=== PATIENT | male | born 1995 | race American Indian/Alaskan Native ===

== ENCOUNTER 2017-03-22 11:51 | Emergency (ER) | payer OTHER, SELFPAY ==
[2017-03-22] MEDS ORDERED: DUONEB *Not for PRN Use IH ONE (11:59)
[2017-03-22] MEDS ORDERED: PROVENTIL IH ONE ×2 (11:59→12:08)
[2017-03-22] MEDS ORDERED: MAGNESIUM SULFATE 2GM/50ML 2 GM/50 ML BAG IV ONE ×2 (12:07→12:08)
[2017-03-22] MEDS ORDERED: ATROVENT IH ONE (12:08)
--- NOTE | 2017-03-22 12:09 | Emergency Department Report ---
Chief Complaint: Adult Asthma Stated Complaint: DIFFICULTY BREATHING Time Seen by Provider: 03/22/17 12:07 - HPI History of Present Illness: 21-year-old male past medical history asthma presents for complaint of severe shortness of breath sent from urgent care. Patient visibly gasping with audible wheezing. Speaking in broken sentences on initial exam. - ROS Review of Systems: History of asthma - Exam Physical Exam: Active loud wheezing on auscultation MSE screening note: Focused history and physical exam performed. Due to findings the following was ordered: Screening Assessment/Plan/Differential Dx: Acute asthma exacerbation/wheezing/ shortness of breath 1- This initial assessment/diagnostic orders/clinical plan/ treatment(s) is/are subject to change based on pt's health status, clinical progression and re- assessment by fellow clinical providers in the ED. Further treatment and workup at subsequent clinical provers discretion. Patient/guardians urged not to elope from ED as their condition may be serious if not clinically assessed and managed. 2-I informed Dr. Francisco of patient's clinical status and charge nurse Dianne 3-DuoNeb, IV magnesium, patient already received 10 mg of IM Decadron and urgent care before presenting to ED 4-chest x-ray ED Disposition for MSE Condition: Stable
--- NOTE | 2017-03-22 12:24 | XRay Report ---
AP CHEST: HISTORY: Wheezing AP view of the chest demonstrates a normal mediastinal and cardiac contour with clear lungs and normal bony and soft tissue structures. IMPRESSION: Unremarkable AP chest.
[2017-03-22] MEDS ORDERED: NACL 0.9% 1000 ML 1,000 ML IV ONE (13:31)
[2017-03-22] MEDS ORDERED: ZITHROMAX 500 MG in NACL 0.9% 250ML 250 ML IV ONE (14:00)
[2017-03-22 14:04] LABS: Hematocrit 48.3 % (35.5-45.6); Hemoglobin 15.9 gm/dl (11.8-15.2); Mean Corpuscular HGB Conc 33 % (32-34); Mean Corpuscular Hemoglobin 28 pg (28-32); Mean Corpuscular Volume 84 fl (84-94); Platelet Count 309 K/mm3 (140-440); Red Blood Count 5.79 M/mm3 (3.65-5.03); Red Cell Distribution Width 13.8 % (13.2-15.2); White Blood Count 13.5 K/mm3 (4.5-11.0)
[2017-03-22 14:20] LABS: BUN/Creatinine Ratio 11; Blood Urea Nitrogen 12 mg/dL (9-20); Calcium 8.8 mg/dL (8.4-10.2); Carbon Dioxide 25 mmol/L (22-30); Glucose 130 mg/dL (75-100)
[2017-03-22 14:21] LABS: Anion Gap 20 mmol/L; Chloride 102.9 mmol/L (98-107); Potassium 4.6 mmol/L (3.6-5.0); Sodium 143 mmol/L (137-145)
--- NOTE | 2017-03-22 14:26 | Emergency Department Report ---
ED Asthma HPI - General Chief Complaint: Adult Asthma Stated Complaint: DIFFICULTY BREATHING Time Seen by Provider: 03/22/17 12:07 Source: patient Mode of arrival: Ambulatory Limitations: No Limitations - History of Present Illness Initial Comments: 21-year-old male the past as a no previous intubations presents to hospital with shortness breath secondary to asthma exacerbation. Patient has had a cough productive of yellow mucus 3 days. Patient developed worsening asthma and shortness of breath this a.m. He was seen in urgent care prior to arrival and received a nebulized treatment and Decadron IM. She felt better but while walking symptoms acutely worsen today he walks over here to the ED. Patient denies fever. Chest tightness moderate in intensity and worse with exertion. - Related Data Previous Rx's Medication Instructions Recorded Last Taken Type ALBUTEROL Inhaler [ProAir HFA 2 puff IH QID PRN #1 inhalation 03/22/17 Unknown Rx Inhaler] ALBUTEROL NEB's [Proventil 0.083% 2.5 mg IH TID PRN #1 box 03/22/17 Unknown Rx NEBS] Ibuprofen [Motrin 600 MG tab] 600 mg PO Q8H PRN #30 tablet 03/22/17 Unknown Rx predniSONE [Deltasone] 40 mg PO QDAY 5 Days tab 03/22/17 Unknown Rx Allergies Allergy/AdvReac Type Severity Reaction Status Date / Time No Known Allergies Allergy Verified 03/25/14 07:18 ED Review of Systems ROS: Stated complaint: DIFFICULTY BREATHING Other details as noted in HPI Comment: All other systems reviewed and negative Other: Constitutional: No fevers chills Eyes: No eye pain visual changes ENT: No ear pain or throat pain Neck: Denies pain Respiratory: As per HPI Cardiovascular: Denies palpitations, syncope GI: Denies abdominal pain, nausea, vomiting, diarrhea : Denies dysuria Musculoskeletal: Denies back pain, joint swelling Skin: Denies rash, lesions, erythema Neurologic: Denies headache, numbness, weakness Psychiatric: Denies suicidal ideation, hallucinations ED Past Medical Hx - Past Medical History Hx Asthma: Yes - Social History Smoking Status: Unknown if ever smoked - Medications Home Medications: Home Medications Medication Instructions Recorded Confirmed Last Taken Type ALBUTEROL Inhaler [ProAir HFA 2 puff IH QID PRN #1 inhalation 03/22/17 Unknown Rx Inhaler] ALBUTEROL NEB's [Proventil 0.083% 2.5 mg IH TID PRN #1 box 03/22/17 Unknown Rx NEBS] Ibuprofen [Motrin 600 MG tab] 600 mg PO Q8H PRN #30 tablet 03/22/17 Unknown Rx predniSONE [Deltasone] 40 mg PO QDAY 5 Days tab 03/22/17 Unknown Rx ED Physical Exam - General Limitations: No Limitations - Other Other exam information: General: Moderate respiratory distress Head exam: Atraumatic, normocephalic Eyes exam: Normal appearance ENT: Moist mucous membrane, normal oropharynx Neck exam: Normal inspection, full range of motion, no meningismus nontender Respiratory exam: Accessory muscle use, respiratory distress, is respiratory and expiratory wheezing, fair air movement, Cardiovascular: Tachycardia regular rhythm Abdomen: Soft, nondistended, and nontender, with normal bowel sounds, no rebound, or guarding Extremity: Full range of motion normal inspection no deformity, tenderness or edema Back: Normal Inspection, full range of motion, no tenderness Neurologic: Alert, oriented x3, cranial nerves intact, no motor or sensory deficit Psychiatric: normal affect, normal mood Skin: Warm, dry, intact ED Course Vital Signs 03/22/17 03/22/17 03/22/17 12:07 12:16 12:19 Temperature Pulse Rate 120 H Pulse Rate [ 130 H Bilateral Upper Lobe] Respiratory 22 22 Rate Respiratory 30 H Rate [Bilateral Upper Lobe] Blood Pressure 117/80 [Right] O2 Sat by Pulse 99 99 Oximetry 03/22/17 03/22/17 03/22/17 12:35 14:43 15:01 Temperature Pulse Rate Pulse Rate [ 125 H 115 H 118 H Bilateral Upper Lobe] Respiratory Rate Respiratory 24 20 20 Rate [Bilateral Upper Lobe] Blood Pressure [Right] O2 Sat by Pulse Oximetry 03/22/17 15:32 Temperature 98.5 F Pulse Rate 112 H Pulse Rate [ Bilateral Upper Lobe] Respiratory 15 Rate Respiratory Rate [Bilateral Upper Lobe] Blood Pressure 128/71 [Right] O2 Sat by Pulse 98 Oximetry - Reevaluation(s) Reevaluation #1: 03/22/17 14:31 Patient presented to the ED and respiratory distress. Albuterol 10 mg, Atrovent 1 mg initiated. Patient treated with additional Solu-Medrol 125, and magnesium 2 g. Azithromycin IV also ordered. 12/12/17 15:50 pt feels better, wheezing resolved, tolerating ambulation with 98% on room air ED Medical Decision Making - Lab Data Result diagrams: 03/22/17 13:50 03/22/17 13:50 Lab Results 03/22/17 03/22/17 Range/Units 13:50 13:50 WBC 13.5 H (4.5-11.0) K/mm3 RBC 5.79 H (3.65-5.03) M/mm3 Hgb 15.9 H (11.8-15.2) gm/dl Hct 48.3 H (35.5-45.6) % MCV 84 (84-94) fl MCH 28 (28-32) pg MCHC 33 (32-34) % RDW 13.8 (13.2-15.2) % Plt Count 309 (140-440) K/mm3 Seg Neutrophils % [employer] Sodium 143 (137-145) mmol/L Potassium 4.6 (3.6-5.0) mmol/L Chloride 102.9 (98-107) mmol/L Carbon Dioxide 25 (22-30) mmol/L Anion Gap 20 mmol/L BUN 12 (9-20) mg/dL Creatinine 1.1 (0.8-1.5) mg/dL Estimated GFR > 60 ml/min BUN/Creatinine Ratio 11 % Glucose 130 H (75-100) mg/dL Calcium 8.8 (8.4-10.2) mg/dL - Radiology Data Radiology results: report reviewed (cxr: unremarkable. Read by radiologist) - Medical Decision Making pt feeling better and enough to go home. will be prescribed meds for acute asthma exacerbation f/u will be encouraged - Differential Diagnosis pneumonia, bronchitis, asthma Critical Care Time: No Critical care attestation.: If time is entered above; I have spent that time in minutes in the direct care of this critically ill patient, excluding procedure time. ED Disposition Clinical Impression: Acute asthma exacerbation Disposition: DC-01 TO HOME OR SELFCARE Is pt being admited?: No Does the pt Need Aspirin: No Condition: Stable Instructions: Asthma (ED) Additional Instructions: Take the medication as prescribed. Return if symptoms worsen. Follow-up with the primary care doctor or clinic provided Prescriptions: ALBUTEROL Inhaler [ProAir HFA Inhaler] 2 puff IH QID PRN #1 inhalation PRN Reason: Shortness Of Breath ALBUTEROL NEB's [Proventil 0.083% NEBS] 2.5 mg IH TID PRN #1 box PRN Reason: Wheezing Ibuprofen [Motrin 600 MG tab] 600 mg PO Q8H PRN #30 tablet PRN Reason: Pain predniSONE [Deltasone] 40 mg PO QDAY 5 Days tab Referrals: [facility] [Provider Group] - 3-5 Days AMANDA STACY MD [Staff Physician] - 3-5 Days Time of Disposition: 15:56
[2017-03-22] MEDS ORDERED: XOPENEX IH ONE (14:36)
[2017-03-22 14:41] LABS: Basophils % (Manual) 0 % (0.0-1.8); Blastocytes % (Manual) 0 %; Diff Status Complete; RBC Morphology Normal
[2017-03-22 15:33] VITALS: BP 128/71
== END 2017-03-22 16:00 | disposition home or self-care (01) ==
LOC: ED 11:51
DX: J45.901 Unspecified asthma with (acute) exacerbation (principal)
CPT/HCPCS: 36415; 71010; 80048; 85007; 85025; 94640; 96365; 96367; 96375; 99284; J0456; J2930; J3475; J7030; J7050

== ENCOUNTER 2020-12-12 02:14 | Emergency (ER) | payer SELFPAY ==
--- NOTE | 2020-12-12 07:37 | Emergency Department Report ---
ED Laceration HPI - HPI Chief Complaint: Wound/Laceration Stated Complaint: LEFT FINGER INJURY Time Seen by Provider: 12/12/20 07:13 Occurred When: Today Location: Upper Extremity (left 5th digit) Tetanus Status: Up to Date Laceration Symptoms: Yes Numbness, Yes Pain, No Foreign Body Sensation, No Weakness Other History: The patient was evaluated in the emergency department for symptoms described in the history of present illness. He/she was evaluated in the context of the global COVID-19 pandemic, which necessitated consideration that the patient might be at risk for infection with the virus that causes COVID-19. Institutional protocols and algorithms that pertain to the evaluation of patients at risk for COVID-19 are in a state of rapid change based on information released by regulatory bodies including the CDC and federal and state organizations. These policies and algorithms were followed during the patient's care in the emergency department. Please note that these policies, procedures and recommendations changed on a rapid basis. 25-year-old - [place] male presents to the emergency room stating that he cut his left pinky while at work taking trash out. Patient states that he was pushing a trash into a trash can when he sustained a cut. Patient report he is up-to-date on his tetanus. Denies any other concerns or injuries. ED Review of Systems ROS: Stated complaint: LEFT FINGER INJURY Other details as noted in HPI ED Past Medical Hx - Past Medical History Previous Medical History?: Yes Hx Asthma: Yes Additional medical history: Eczema - Surgical History Past Surgical History?: Yes Additional Surgical History: Umbilical hernia repair - Social History Smoking Status: Never Smoker Substance Use Type: None - Medications Home Medications: Home Medications Medication Instructions Recorded Confirmed Last Taken Type ALBUTEROL NEB's [Proventil 0.083% 2.5 mg IH TID PRN #1 box 03/22/17 Unknown Rx NEBS] Albuterol Mdi (or & Nicu Only) 2 puff IH QID PRN #1 inhalation 03/22/17 Unknown Rx [ProAir HFA Inhaler] Ibuprofen [Motrin 600 MG tab] 600 mg PO Q8H PRN #30 tablet 03/22/17 Unknown Rx predniSONE [Deltasone] 40 mg PO QDAY 5 Days tab 03/22/17 Unknown Rx Laceration Physical Exam - Exam General: Vital signs noted. No distress. Alert and acting appropriately. Wound Length (cm): 2 (Avulsion of tissue) Laceration Exam: Yes Normal Distal CMS, No Foreign Body, No Exposed Tendon, Vessel, or Nerve, No Tendon Injury ED Course Vital Signs 12/12/20 03:40 Temperature 97.5 F L Pulse Rate 59 L Respiratory 18 Rate Blood Pressure 144/102 O2 Sat by Pulse 97 Oximetry ED Medical Decision Making - Medical Decision Making 25-year-old -[place] male presents to the emergency room stating that he cut his left pinky while at work taking trash out. Patient states that he was pushing a trash into a trash can when he sustained a cut. Patient report he is up-to-date on his tetanus. Denies any other concerns or injuries. Wound care with irrigation Betadine helistat to help stop the bleeding. Pressure dressing. Patient has a skin avulsion not able to repair with sutures or Dermabond. Patient is instructed to keep the wound clean and dry remove the bandage in 2 hours which should ensure that the bleeding is has stopped. Follow-up with a primary care provider. Critical care attestation.: If time is entered above; I have spent that time in minutes in the direct care of this critically ill patient, excluding procedure time. ED Disposition Clinical Impression: Laceration of finger Disposition: HOME / SELF CARE / HOMELESS Is pt being admited?: No Does the pt Need Aspirin: No Condition: Stable Instructions: Laceration Care, Adult, [id number] Additional Instructions: Take bandage off in the next 2 hours. Bleeding should have stopped. Keep wound clean and dry with soap and water. Keep bandage for the next few days. Tylenol or ibuprofen as needed for pain management. Referrals: PRIMARY MD CHARLEE [Primary Care Provider] - 3-5 Days RUTH GUARDADO MD [Staff Physician] - 3-5 Days Forms: Work/School Release Form(ED)
[2020-12-12 07:44] VITALS: BP 138/85
== END 2020-12-13 10:15 | disposition home or self-care (01) ==
LOC: ED 02:14
DX: S61.217A Laceration without foreign body of left little finger without damage to nail, initial encounter (principal); J45.909 Unspecified asthma, uncomplicated; Z98.890 Other specified postprocedural states; Z79.899 Other long term (current) drug therapy; W45.8XXA Other foreign body or object entering through skin, initial encounter; Y93.89 Activity, other specified; Y92.89 Other specified places as the place of occurrence of the external cause; Y99.0 Civilian activity done for income or pay
CPT/HCPCS: 99282